=== PATIENT | male | born 1990 | race Caucasian/White ===

== ENCOUNTER → 2020-12-19 | Outpatient (CLI) | payer OTHER | LOC: SJCVCIMAG 14:15 | PROVIDERS: ATTEND Internal Medicine | DX: I45.10 Unspecified right bundle-branch block (principal); R94.31 Abnormal electrocardiogram [ECG] [EKG]; R00.2 Palpitations; R07.89 Other chest pain; Z72.89 Other problems related to lifestyle; Z88.0 Allergy status to penicillin; Z13.220 Encounter for screening for lipoid disorders ==